=== PATIENT | female | born 1990 | race Two or more races ===

== ENCOUNTER 2023-09-06 11:00 | Inpatient (IN) | payer OTHER ==
[~2023-09-06] VITALS: Ht 170.2 cm; Wt 65.8 kg
[2023-09-16 06:27] LABS: HEMATOCRIT 38.9 % (36.0-45.00); HEMOGLOBIN 13.5 g/dL (12.0-15.00); MEAN CELL VOLUME 86.5 fL (80.00-100.00); MEAN CORPUSCULAR HEMOGLOBIN 30.1 pg (27.00-32.0); MEAN CORPUSCULAR HGB CONC 34.8 g/dl (32.0-36.0); PLATELET COUNT 218 K/uL (150-450); RED CELL DISTRIBUTION WIDTH 12.9 % (11.5-14.5)
[2023-09-16 07:31] LABS: CALCIUM 8.3 mg/dL (8.5-10.1); CREATININE SERUM 0.72 mg/dL (0.55-1.02); GFR 93.87; POTASSIUM 4.18 mEq/L (3.5-5.1)
== END 2023-09-16 11:19 | disposition home or self-care (01) | DRG 743 ==
LOC: ADM 11:00 → CIR.AMB 09-15 06:28 → EDSTATUS 09-15 11:15 → CIR.AMB 09-15 12:45 → SURG 09-15 23:40
PROVIDERS: Obstetrics & Gynecology; ADMIT Obstetrics & Gynecology Gynecologic Oncology; ATTEND Obstetrics & Gynecology Gynecologic Oncology
PROC: 0UB14ZZ Excision of Left Ovary, Percutaneous Endoscopic Approach (ICD-10-PCS; principal; 2023-09-15 12:45)
DX: D27.1 Benign neoplasm of left ovary (principal); Z20.822 Contact with and (suspected) exposure to COVID-19